=== PATIENT | female | born 1945 | race Caucasian/White ===

== ENCOUNTER 2023-09-01 06:01 | Day surgery (SDC) | payer MEDICARE, BC ==
[~2023-09-01] VITALS: Ht 165.1 cm; Wt 78.7 kg
[~2023-09-01 06:01] MED LIST: ATROPINE SULFATE 1% OPHTH SOLN 2ML BTL OS SCH; ERGO500029 PO; GABA-282 PO; LEXA5TAB13 PO; LIDOCAINE 3.5 % 1ML OPHTH TOPICAL GEL OU ONE; LISI20TA35 PO; OFLOXACIN 0.3 % (OCUFLOX) OPTH SOL 5ML OS ONE; PHENYLEPHRINE 10% OPHTH SOL 5ML OS PRN; PHENYLEPHRINE 2.5% OPHTH SOL 2ML OS SCH; SUCR1TAB56 PO; SYNT50TA PO; TROPICAMIDE 1% OPHTH SOLN 15ML OS SCH
[2023-09-01] MEDS: OFLOXACIN 0.3 % (OCUFLOX) OPTH SOL 5ML OS ONE (06:51)
[2023-09-01] MEDS: ATROPINE SULFATE 1% OPHTH SOLN 2ML BTL OS SCH (06:51)
[2023-09-01] MEDS: PHENYLEPHRINE 2.5% OPHTH SOL 2ML OS SCH (06:52)
[2023-09-01] MEDS: LIDOCAINE 3.5 % 1ML OPHTH TOPICAL GEL OU ONE (06:52)
[2023-09-01] MEDS ORDERED: fentaNYL 100 MCG/2 ML INJECTION As Ordered ONE (07:10)
[2023-09-01] MEDS ORDERED: MIDAZOLAM INJ 2MG/2ML VIAL As Ordered ONE (07:10)
[2023-09-01] MEDS ORDERED: propofoL 200 MG/20 ML VIAL As Ordered ONE (07:10)
[2023-09-01] MEDS: BSS IRRIG/VANCO(10MG)/TOBRA(5MG)/EPINEPH(1:1000-0.5CC)500ML BAG-ORONLY As Ordered ONE (07:42)
[2023-09-01] MEDS: LIDOCAINE 1% SDV 5ML VIAL As Ordered ONE (07:42)
[2023-09-01] MEDS: CEFUROXIME 1MG/0.1ML INTRACAMERAL INJ As Ordered ONE (07:45)
[2023-09-01 07:58] VITALS: BP 170/90; TEMP 97.9; O2SAT 95
== END 2023-09-01 08:11 | disposition home or self-care (01) ==
LOC: M SDC 06:01
PROVIDERS: ATTEND Ophthalmology
DX: H25.11 Age-related nuclear cataract, right eye (principal); I10 Essential (primary) hypertension; E03.9 Hypothyroidism, unspecified; K21.9 Gastro-esophageal reflux disease without esophagitis; Z79.890 Hormone replacement therapy; Z79.899 Other long term (current) drug therapy; Z88.8 Allergy status to other drugs, medicaments and biological substances; Z98.84 Bariatric surgery status
CPT/HCPCS: 66984; J0697; J2250; J3010; V2632

== ENCOUNTER 2023-10-20 06:51 | Day surgery (SDC) | payer MEDICARE, BC ==
[~2023-10-20] VITALS: Ht 165.1 cm; Wt 78.5 kg
[~2023-10-20 06:51] MED LIST changes: -ATROPINE SULFATE 1% OPHTH SOLN 2ML BTL OS SCH; -LIDOCAINE 3.5 % 1ML OPHTH TOPICAL GEL OU ONE; -OFLOXACIN 0.3 % (OCUFLOX) OPTH SOL 5ML OS ONE; +PHENYLEPHRINE 10% OPHTH SOL 5ML OD PRN; -PHENYLEPHRINE 10% OPHTH SOL 5ML OS PRN; -PHENYLEPHRINE 2.5% OPHTH SOL 2ML OS SCH; -TROPICAMIDE 1% OPHTH SOLN 15ML OS SCH
[2023-10-20] MEDS ORDERED: fentaNYL 100 MCG/2 ML INJECTION As Ordered ONE (07:06)
[2023-10-20] MEDS: LIDOCAINE 3.5 % 1ML OPHTH TOPICAL GEL OU ONE (07:16)
[2023-10-20] MEDS: OFLOXACIN 0.3 % (OCUFLOX) OPTH SOL 5ML OD ONE (07:16)
[2023-10-20] MEDS: TROPICAMIDE 1% OPHTH SOLN 15ML OD SCH (07:16)
[2023-10-20] MEDS: ATROPINE SULFATE 1% OPHTH SOLN 2ML BTL OD SCH (07:16)
[2023-10-20] MEDS: PHENYLEPHRINE 2.5% OPHTH SOL 2ML OD SCH (07:16)
[2023-10-20] MEDS: BSS IRRIG/VANCO(10MG)/TOBRA(5MG)/EPINEPH(1:1000-0.5CC)500ML BAG-ORONLY As Ordered ONE (08:26)
[2023-10-20] MEDS: LIDOCAINE 1% SDV 5ML VIAL As Ordered ONE (08:26)
[2023-10-20] MEDS: CEFUROXIME 1MG/0.1ML INTRACAMERAL INJ As Ordered ONE (08:30)
[2023-10-20 08:39] VITALS: TEMP 97.3; O2SAT 100
[2023-10-20 09:00] VITALS: BP 171/79
== END 2023-10-20 09:08 | disposition home or self-care (01) ==
LOC: M SDC 06:51
PROVIDERS: ATTEND Ophthalmology
DX: H25.11 Age-related nuclear cataract, right eye (principal); I10 Essential (primary) hypertension; E03.9 Hypothyroidism, unspecified; K21.9 Gastro-esophageal reflux disease without esophagitis; Z79.899 Other long term (current) drug therapy; Z88.8 Allergy status to other drugs, medicaments and biological substances; Z98.84 Bariatric surgery status
CPT/HCPCS: 66984; J0697; J3010; V2632